=== PATIENT | male | born 1960 | race Hispanic/Latino ===

== ENCOUNTER 2024-09-26 17:11 | Emergency (ER) | payer SELFPAY ==
[~2024-09-26] VITALS: Ht 170.2 cm; Wt 81.6 kg
[2024-09-26 17:21] VITALS: PULSE 74; RESP 15; TEMP 98.3; O2SAT 100
[2024-09-26] MEDS: KETOROLAC TROMETHAMINE 60 MG/2 ML VIAL IM ONE (18:09)
[2024-09-26] MEDS: CYCLOBENZAPRINE HCL 10 MG TAB PO ONE (18:09)
[2024-09-26] MEDS ORDERED: MEDROL4 M2 PO (18:14)
[2024-09-26] MEDS ORDERED: CYCLOBENZAPRINE5 MG PO (18:14)
== END 2024-09-26 18:30 | disposition home or self-care (01) ==
LOC: ER 17:28
DX: M54.50 Low back pain, unspecified (principal); X50.1XXA Overexertion from prolonged static or awkward postures, initial encounter; Y92.89 Other specified places as the place of occurrence of the external cause
CPT/HCPCS: 99283; J1885